=== PATIENT | male | born 1960 | race Asian ===

== ENCOUNTER 2019-03-21 23:29 | Emergency (ER) | payer SELFPAY ==
[~2019-03-21] VITALS: Ht 170.2 cm; Wt 70.5 kg
[~2019-03-21 23:29] MED LIST: ASPI81TA50 PO
[2019-03-21 23:31] VITALS: BP 158/89
== END 2019-03-21 23:47 | disposition home or self-care (01) ==
LOC: ED 23:41
DX: K04.7 Periapical abscess without sinus (principal)
CPT/HCPCS: 99283